=== PATIENT | male | born 1955 | race Caucasian/White ===

== ENCOUNTER 2021-01-07 10:07 | Emergency (ER) | payer BC ==
[~2021-01-07] VITALS: Ht 175.3 cm; Wt 95.3 kg
[2021-01-07 10:38] LABS: BASOPHILS % (AUTO) 0.9 % (0.0-5.0); EOSINOPHILS % (AUTO) 2.3 % (0.0-8.0); HEMATOCRIT 36.6 % (42-54); LYMPHOCYTES % (AUTO) 14.7 % (21.0-51.0); MEAN CORPUSCULAR HEMOGLOBIN 30.9 pg (27.0-33.0); MEAN CORPUSCULAR HGB CONC 36.6 g/dL (32.0-36.0); MEAN CORPUSCULAR VOLUME 84.3 fL (79-99); MONOCYTES % (AUTO) 11.6 % (3.0-13.0); PLATELET COUNT (AUTO) 174 K/uL (130-400); RED BLOOD CELL COUNT(AUTO) 4.34 MIL/uL (4.50-6.20); RED CELL DISTRIBUTION WIDTH 12.7 % (11.0-15.5); WHITE BLOOD COUNT (AUTO) 5.8 K/uL (4.8-10.8)
[2021-01-07 10:56] LABS: ALBUMIN 3.6 g/dL (3.5-5.0); BILIRUBIN,TOTAL 0.8 mg/dL (0.2-1.0); CREATININE 6.8 mg/dL (0.5-1.5); TOTAL PROTEIN, SERUM 7.5 g/dL (6.0-8.3)
[2021-01-07 11:02] LABS: POTASSIUM 2.7 mmol/L (3.5-5.1)
[2021-01-07 11:06] LABS: APPEARANCE,URINE CLOUDY (CLEAR); BILIRUBIN,URINE SMALL (NEGATIVE); COLOR,URINE YELLOW (YELLOW); GLUCOSE, URINE (UA) NEGATIVE (NEGATIVE); KETONES,URINE 5 mg/dL (NEGATIVE); LEUKOCYTE ESTERASE ,URINE NEGATIVE (NEGATIVE); NITRATE,URINE NEGATIVE (NEGATIVE); OCCULT BLOOD,URINE NEGATIVE (NEGATIVE); PROTEIN,URINE NEGATIVE (NEGATIVE); UROBILINOGEN,URINE 0.2 mg/dL (0.2-1.0)
[2021-01-07 11:15] LABS: BACTERIA,URINE Moderate /HPF (None Seen); RBC,URINE 0-1 /HPF (0-1); SQUAMOUS EPITHELIAL CELL,UR Rare /HPF (0-2)
[2021-01-07] MEDS ORDERED: POTASSIUM BICARB/CIT AC 25 MEQ TABLET.EFF PO ONE (11:30)
[2021-01-07] MEDS ORDERED: 0.9%NACL 1000ML 1,000 ML IV ONE (11:30)
[2021-01-07] MEDS ORDERED: POTASSIUM BICARB/CIT AC 25 MEQ TABLET.EFF PO SCH (13:00)
[2021-01-07] MEDS ORDERED: LEVOFLOXACIN 750 MG/D5W 150 ML 150 ML IV SCH (13:00)
[2021-01-07] MEDS ORDERED: CIPR-278 PO (13:35)
[2021-01-07] MEDS ORDERED: POTA20PA32 PO (13:35)
[2021-01-07 13:38] VITALS: BP 109/63
[2021-01-09] MEDS ORDERED: LEVOFLOXACIN 500 MG/D5W 100 ML 100 ML IV SCH (09:00)
== END 2021-01-07 15:06 | disposition home or self-care (01) ==
LOC: EDH 10:07
DX: N39.0 Urinary tract infection, site not specified (principal); E87.6 Hypokalemia; N40.0 Benign prostatic hyperplasia without lower urinary tract symptoms; I25.10 Atherosclerotic heart disease of native coronary artery without angina pectoris; E11.9 Type 2 diabetes mellitus without complications; E78.00 Pure hypercholesterolemia, unspecified; I10 Essential (primary) hypertension; Z95.5 Presence of coronary angioplasty implant and graft
CPT/HCPCS: 36415; 80053; 81001; 85025; 87088; 96361; 96365; 96366; 99284; J1956; J7030

== ENCOUNTER 2021-01-27 16:34 | Observation (INO) | payer BC ==
[~2021-01-27] VITALS: Ht 175.3 cm; Wt 93.0 kg
[~2021-01-27 16:34] MED LIST: CIPR-278 PO; POTA20PA32 PO
[2021-01-27] MEDS: METRONIDAZOLE 500 MG TABLET PO SCH (18:36)
[2021-01-27 18:37] LABS: BASOPHILS % (AUTO) 1.6 % (0.0-5.0); EOSINOPHILS % (AUTO) 5.3 % (0.0-8.0); HEMATOCRIT 31.5 % (42-54); LYMPHOCYTES % (AUTO) 27.2 % (21.0-51.0); MEAN CORPUSCULAR HEMOGLOBIN 29.7 pg (27.0-33.0); MEAN CORPUSCULAR HGB CONC 32.1 g/dL (32.0-36.0); MEAN CORPUSCULAR VOLUME 92.6 fL (79-99); MONOCYTES % (AUTO) 8.6 % (3.0-13.0); NEUTROPHILS % (AUTO) 57.1 % (40.0-77.0); PLATELET COUNT (AUTO) 207 K/uL (130-400); RED CELL DISTRIBUTION WIDTH 13.5 % (11.0-15.5); WHITE BLOOD COUNT (AUTO) 5.5 K/uL (4.8-10.8)
[2021-01-27 18:49] LABS: CREATININE 1.4 mg/dL (0.5-1.5); POTASSIUM 4.2 mmol/L (3.5-5.1)
[2021-01-27 18:50] LABS: INR 1.04 (0.85-1.15); PROTHROMBIN TIME 11.3 SEC (9.6-11.6)
[2021-01-27 18:52] LABS: PARTIAL THROMBOPLASTIN TIME 27.8 SEC (26.3-35.5)
[2021-01-27 18:59] LABS: ALBUMIN 3.6 g/dL (3.5-5.0); BILIRUBIN,DIRECT 0.1 mg/dL (0.0-0.3); BILIRUBIN,TOTAL 0.4 mg/dL (0.2-1.0); TOTAL PROTEIN, SERUM 6.5 g/dL (6.0-8.3)
[2021-01-27] MEDS ORDERED: DIPHENHYDRAMINE HCL 25 MG CAPSULE PO PRN (19:00)
[2021-01-27] MEDS ORDERED: ZOLPIDEM TARTRATE 5 MG TAB PO PRN (19:00)
[2021-01-27] MEDS: 1/2 NS 1000ML 1,000 ML IV SCH ×2 (19:00→23:43)
[2021-01-27] MEDS ORDERED: ONDANSETRON 4MG INJ IVP PRN (19:00)
[2021-01-27] MEDS ORDERED: ACETAMINOPHEN 325 MG TAB PO PRN (19:00)
[2021-01-27] MEDS: ZOSYN 3.375GM +NS 50ML IV SCH (19:12)
[2021-01-27] MEDS ORDERED: DEXTROSE 50%-WATER 50 ML DISP.SYRIN IV ONE (19:34)
[2021-01-27] MEDS ORDERED: LIDOCAINE HCL 5% OINT 50GM 1 APPL/GM TUBE TP PRN (21:00)
[2021-01-27] MEDS ORDERED: METRONIDAZOLE 500MG/100ML BAG 100 ML IVPB SCH (22:00)
[2021-01-27 22:20] VITALS: BP 137/81
[2021-01-27] MEDS ORDERED: FERR325T29 PO (23:48)
[2021-01-27] MEDS ORDERED: CETI10TA57 PO (23:48)
[2021-01-27] MEDS ORDERED: METH-812 PO (23:53)
[2021-01-27] MEDS ORDERED: ATOR40TA71 PO (23:53)
[2021-01-27] MEDS ORDERED: CARV25TA PO (23:53)
[2021-01-27] MEDS ORDERED: GLIM4TAB36 PO (23:58)
[2021-01-27] MEDS ORDERED: OMEP20CA12 PO (23:58)
[2021-01-27] MEDS ORDERED: FLUT16H EN (23:58)
[2021-01-27] MEDS ORDERED: LOSA1TAB54 PO (23:58)
[2021-01-27] MEDS ORDERED: PIOG30TA70 PO (23:58)
[2021-01-28] MEDS ORDERED: ACETAMINOPHEN WITH CODEINE 1 TAB TAB PO PRN
[2021-01-28] MEDS ORDERED: ACET1TAB27 PO
[2021-01-28] MEDS ORDERED: METHOCARBAMOL 750 MG PO PRN
[2021-01-28] MEDS ORDERED: METF-446 PO
[2021-01-28] MEDS ORDERED: CARVEDILOL 25 MG TABLET PO ONE (00:08)
[2021-01-28] MEDS: METRONIDAZOLE 500 MG TABLET PO SCH ×3 (03:01→17:28)
[2021-01-28 03:16] VITALS: BP 134/78
[2021-01-28 04:53] LABS: BASOPHILS % (AUTO) 1.8 % (0.0-5.0); EOSINOPHILS % (AUTO) 7.3 % (0.0-8.0); HEMATOCRIT 28.8 % (42-54); LYMPHOCYTES % (AUTO) 34.4 % (21.0-51.0); MEAN CORPUSCULAR HGB CONC 33.3 g/dL (32.0-36.0); MONOCYTES % (AUTO) 10.2 % (3.0-13.0); NEUTROPHILS % (AUTO) 46.1 % (40.0-77.0); PLATELET COUNT (AUTO) 183 K/uL (130-400); RED CELL DISTRIBUTION WIDTH 13.2 % (11.0-15.5); WHITE BLOOD COUNT (AUTO) 4.5 K/uL (4.8-10.8)
[2021-01-28 05:06] LABS: ALBUMIN 3.2 g/dL (3.5-5.0); BILIRUBIN,DIRECT 0.1 mg/dL (0.0-0.3); BILIRUBIN,TOTAL 0.4 mg/dL (0.2-1.0); CREATININE 1.2 mg/dL (0.5-1.5); POTASSIUM 3.8 mmol/L (3.5-5.1); TOTAL PROTEIN, SERUM 5.9 g/dL (6.0-8.3)
[2021-01-28] MEDS ORDERED: GLUCAGON 1MG KIT 1 MG ML IM PRN (05:30)
[2021-01-28] MEDS ORDERED: DEXTROSE 50%-WATER 50 ML DISP.SYRIN IV PRN (05:30)
[2021-01-28] MEDS: ZOSYN 3.375GM +NS 50ML IV SCH ×3 (06:00→20:31)
[2021-01-28] MEDS ORDERED: DIATR MEGLU/DIATRIZOATE SODIUM 30 ML BOTTLE ONE (07:21)
[2021-01-28 08:00] VITALS: BP 163/85
[2021-01-28] MEDS: GLIMEPIRIDE 2 MG TABLET PO SCH (08:00)
[2021-01-28] MEDS: METFORMIN HCL 500 MG TABLET PO SCH ×2 (08:00→17:28)
[2021-01-28] MEDS: FLUTICASONE PROPIONATE 50MCG/SPRAY 16 GM BOTTLE EN SCH (09:00)
[2021-01-28] MEDS: PIOGLITAZONE 30MG TAB PO SCH (09:00)
[2021-01-28] MEDS: PANTOPRAZOLE 40 MG TAB DR PO SCH (09:15)
[2021-01-28] MEDS: FERROUS SULFATE 325 MG TABLET.DR PO SCH (09:15)
[2021-01-28] MEDS: LOSARTAN/HYDROCHLOROTHIAZIDE 50-12.5MG TABLET PO SCH (09:18)
[2021-01-28] MEDS: CETIRIZINE HCL 5 MG TABLET PO SCH (09:18)
[2021-01-28] MEDS: CARVEDILOL 25 MG TABLET PO SCH ×3 (09:19→20:32)
[2021-01-28 12:00] VITALS: BP 163/92
[2021-01-28 16:00] VITALS: BP 161/84
[2021-01-28 20:20] VITALS: BP 172/76
[2021-01-28] MEDS: 1/2 NS 1000ML 1,000 ML IV SCH (20:45)
[2021-01-28] MEDS ORDERED: ATORVASTATIN 40 MG TABLET PO SCH (21:00)
[2021-01-29 00:24] VITALS: BP 114/65
[2021-01-29] MEDS: METRONIDAZOLE 500 MG TABLET PO SCH ×2 (02:13→10:48)
[2021-01-29 04:24] VITALS: BP 134/75
[2021-01-29 06:11] LABS: HEMATOCRIT 29.5 % (42-54); MEAN CORPUSCULAR HEMOGLOBIN 29.7 pg (27.0-33.0); MEAN CORPUSCULAR HGB CONC 33.6 g/dL (32.0-36.0); MEAN CORPUSCULAR VOLUME 88.6 fL (79-99); PLATELET COUNT (AUTO) 190 K/uL (130-400); RED BLOOD CELL COUNT(AUTO) 3.33 MIL/uL (4.50-6.20); RED CELL DISTRIBUTION WIDTH 13.2 % (11.0-15.5)
[2021-01-29 06:34] LABS: ALBUMIN 3.2 g/dL (3.5-5.0); BILIRUBIN,TOTAL 0.7 mg/dL (0.2-1.0); CREATININE 1.3 mg/dL (0.5-1.5); POTASSIUM 3.9 mmol/L (3.5-5.1); TOTAL PROTEIN, SERUM 5.9 g/dL (6.0-8.3)
[2021-01-29 07:44] LABS: EOSINOPHILS % (MANUAL) 2 % (1-6); LYMPHOCYTES % (MANUAL) 39 % (22-44); MAN.DIFF COMMENT-IMPRESSION MANUAL DIFFERENTIAL; PLATELET MORPHOLOGY COMMENT ADEQUATE; SEGMENTED NEUTROPHILS % 59 % (40-70)
[2021-01-29 08:00] VITALS: BP 133/75
[2021-01-29] MEDS: FERROUS SULFATE 325 MG TABLET.DR PO SCH (08:24)
[2021-01-29] MEDS: LOSARTAN/HYDROCHLOROTHIAZIDE 50-12.5MG TABLET PO SCH (08:24)
[2021-01-29] MEDS: CETIRIZINE HCL 5 MG TABLET PO SCH (08:24)
[2021-01-29] MEDS: PANTOPRAZOLE 40 MG TAB DR PO SCH (08:24)
[2021-01-29 08:25] VITALS: BP 133/75
[2021-01-29] MEDS: CARVEDILOL 25 MG TABLET PO SCH (08:25)
[2021-01-29] MEDS: PIOGLITAZONE 30MG TAB PO SCH (08:26)
[2021-01-29] MEDS: FLUTICASONE PROPIONATE 50MCG/SPRAY 16 GM BOTTLE EN SCH (08:26)
[2021-01-29] MEDS: ZOSYN 3.375GM +NS 50ML IV SCH (08:26)
[2021-01-29] MEDS: METFORMIN HCL 500 MG TABLET PO SCH (08:28)
[2021-01-29] MEDS: GLIMEPIRIDE 2 MG TABLET PO SCH (08:39)
== END 2021-01-29 11:30 | disposition home or self-care (01) ==
LOC: EDH 16:34 → EDHIP 16:35 → 3CH 22:08
PROVIDERS: ADMIT Internal Medicine; ATTEND Internal Medicine
DX: K61.2 Anorectal abscess (principal); K64.4 Residual hemorrhoidal skin tags; R19.7 Diarrhea, unspecified; K82.8 Other specified diseases of gallbladder; E11.9 Type 2 diabetes mellitus without complications; I10 Essential (primary) hypertension; E78.5 Hyperlipidemia, unspecified; E78.00 Pure hypercholesterolemia, unspecified; I25.10 Atherosclerotic heart disease of native coronary artery without angina pectoris; Z98.84 Bariatric surgery status; Z95.5 Presence of coronary angioplasty implant and graft; Z79.899 Other long term (current) drug therapy
CPT/HCPCS: 36415 ×3; 74178; 80048 ×2; 80053; 80076 ×2; 82948 ×8; 83630; 85025 ×3; 85610; 85730; 87046; 87493; 96361 ×2; 96365; 96366 ×3; 96375; 96376; G0378 ×42; G0379; J2543 ×5; J7070 ×2; Q9963

== ENCOUNTER → 2023-04-02 | Outpatient (CLI) | payer OTHER ==
[~2023-04-02] MED LIST changes: +ACET1TAB97 PO; +ATOR40TA71 PO; +CARV25TA PO; +CETI10TA57 PO; -CIPR-278 PO; +FERR325T29 PO; +FLUT16H EN; +GLIM4TAB36 PO; +LOSA1TAB54 PO; +METF-446 PO; +METH-812 PO; +OMEP20CA12 PO; +PIOG30TA70 PO; -POTA20PA32 PO
[2023-04-02] MEDS: REGADENOSON 0.4 MG/5 ML PF SYG IVP ONE (13:29)
== END | disposition home or self-care (01) ==
LOC: SHCH 09:20
PROVIDERS: ATTEND Internal Medicine Cardiovascular Disease
DX: I25.10 Atherosclerotic heart disease of native coronary artery without angina pectoris (principal); R07.9 Chest pain, unspecified; R06.09 Other forms of dyspnea
CPT/HCPCS: 78452; 96374; 93017; J2785; A9500 ×2

== ENCOUNTER → 2023-04-06 | Outpatient (CLI) | payer OTHER | END | disposition home or self-care (01) | LOC: SHCH 07:48 | PROVIDERS: ATTEND Internal Medicine Cardiovascular Disease | DX: I11.9 Hypertensive heart disease without heart failure (principal); R01.1 Cardiac murmur, unspecified; E78.5 Hyperlipidemia, unspecified | CPT/HCPCS: 93306 ==

== ENCOUNTER → 2023-08-03 | Outpatient (CLI) | payer OTHER | END | disposition home or self-care (01) | LOC: SHCH 12:33 | PROVIDERS: ATTEND Internal Medicine Cardiovascular Disease | DX: I70.203 Unspecified atherosclerosis of native arteries of extremities, bilateral legs (principal); I87.2 Venous insufficiency (chronic) (peripheral); I87.1 Compression of vein | CPT/HCPCS: 93925; 93970 ==